=== PATIENT | female | born 1930 | race Caucasian/White ===

== ENCOUNTER 2017-03-17 12:05 | Emergency (ER) | payer MEDICARE, BC ==
[~2017-03-17] VITALS: Ht 160 cm; Wt 70.0 kg
[2017-03-17 12:14] VITALS: BP 143/67; PULSE 73; RESP 18; TEMP 98.4; O2SAT 100
--- NOTE | 2017-03-17 12:40 | PD ---
HPI Chief Complaint: Fall Time Seen by Provider: 12:12 Travel History International Travel<30 days: No Contact w/Intl Traveler<30days: No Traveled to known affect area: No History of Present Illness HPI Patient is an 86-year-old female presents to the emergency department for evaluation after a fall. Patient apparently walked into another resident and then fell forward, she has a history of fairly severe dementia and is oriented to self only at baseline, she does not interact very well with me, her eyes are open and she does tell us to "stop it" every now and then but she is unable to provide any of her history. According to EMS this appears to be her baseline mental status. [facility] Past Medical History Medical History: Unable to Obtain Past Surgical History Surgical History: Unable to Obtain Social History Alcohol Use: No Tobacco Use: No Substance Use: No Allergies-Medications Reported Meds & Prescriptions Reported Meds & Active Scripts Active Reported Risperidone 0.5 Mg Tab 0.5 Mg PO DAILY Hydroxyzine HCl 25 Mg Tab 25 Mg PO QID Mapap (Acetaminophen) 325 Mg Tab 325 Mg PO Q4-6H PRN Melatonin 3 Mg Tab 6 Ibuprofen 200 Mg Cap 400 Mg BID Docusate Sodium 100 Mg Cap 100 Mg PO BID PRN Amlodipine-Benazepril 5-10 Mg Cap 1 Cap PO DAILY Simvastatin 20 Mg Tab 20 Mg PO DAILY Aspirin 81 Mg Chew 81 Mg CHEW ONCE Trazodone (Trazodone HCl) 50 Mg Tab 50 Mg PO HS Alendronate (Alendronate Sodium) 70 Mg Tab 70 Mg PO Q7D Review of Systems Except as stated in HPI: all other systems reviewed are Neg Physical Exam Narrative GENERAL: Well-developed elderly female in no obvious distress SKIN: Focused skin assessment warm/dry. No skin breakdown posteriorly, there is a contusion over the right tib-fib. HEAD: No hoff signs no raccoons eyes, there is a frontal hematoma.. Normocephalic. EYES: Pupils equal and round. No scleral icterus. No injection or drainage. ENT: No nasal bleeding or discharge. Mucous membranes pink and moist. NECK: Trachea midline. No JVD. CARDIOVASCULAR: Regular rate and rhythm. No murmur appreciated. RESPIRATORY: No accessory muscle use. Clear to auscultation. Breath sounds equal bilaterally. GASTROINTESTINAL: Abdomen soft, non-tender, nondistended. Hepatic and splenic margins not palpable. MUSCULOSKELETAL: No obvious deformities. No clubbing. No cyanosis. No edema. No midline CT or L-spine tenderness that I appreciate, no gross deformity in any of the extremities, there is some tenderness over the anterior tibia on the right associated with a contusion, pulses motor are intact distally in all 4 extremities. NEUROLOGICAL: Awake and alert. No obvious cranial nerve deficits. Moves all 4 extrema. Normal speech. Uncooperative with a neurologic exam. Data Data Last Documented VS Vital Signs Date Time Temp Pulse Resp B/P (MAP) Pulse Ox O2 Delivery O2 Flow Rate FiO2 03/17/17 12:20 80 18 100 Room Air 03/17/17 12:14 98.4 143/67 (92) Orders Orders Tibia/Fibula (Ap/Lat) (03/17/17 ) Ct Brain W/O Iv Contrast(Rout) (03/17/17 ) Ct Cerv Spine W/O Contrast (03/17/17 ) Ed Discharge Order (03/17/17 13:42) Remove Cervical Collar (03/17/17 13:42) MDM Medical Decision Making Medical Screen Exam Complete: Yes Emergency Medical Condition: Yes Differential Diagnosis Fall head injury neck injury back injury. Narrative Course Concerns on her physical exam her for head injury neck injury and right tibial injury, x-rays as follows: Last 24 hours Impressions Tibia/Fibula X-Ray 03/17/17 0000 Signed Impressions: Service Date/Time: Friday, March 17, 2017 12:30 - CONCLUSION: Soft tissue swelling without acute fracture. Robles Hurley MD Head CT 03/17/17 0000 Signed Impressions: Service Date/Time: Friday, March 17, 2017 13:00 - CONCLUSION: 1. Cerebral atrophy and chronic ischemic small vessel vasculopathy. 2. Left frontal scalp contusion. Robles Hurley MD Cervical Spine CT 03/17/17 0000 Signed Impressions: Service Date/Time: Friday, March 17, 2017 13:00 - CONCLUSION: Negative trauma CT. Pavan Addison MD Unable to family service counselor patient secondary to dementia, she is stable for discharge, transported back to the detention Diagnosis Primary Impression: Fall Additional Impressions: Head contusion Contusion of leg Disposition: 03 DISCHARGE TO SNF Condition: Stable Karthikeyan Beltrán MD Mar 17, 2017 12:40
[2017-03-17] MEDS ORDERED: MELA3TAB (12:52)
[2017-03-17] MEDS ORDERED: ASPI-516 CHEW (12:52)
[2017-03-17] MEDS ORDERED: IBUP200C (12:52)
[2017-03-17] MEDS ORDERED: SIMV20TA PO (12:52)
[2017-03-17] MEDS ORDERED: AMLO5CAP PO (12:52)
[2017-03-17] MEDS ORDERED: ALEN1TAB48 PO (12:52)
[2017-03-17] MEDS ORDERED: DOCU100C15 PO (12:52)
[2017-03-17] MEDS ORDERED: TRAZ50TA12 PO (12:52)
[2017-03-17] MEDS ORDERED: MAPA325T PO (12:56)
[2017-03-17] MEDS ORDERED: HYDR-3133 PO (12:56)
[2017-03-17] MEDS ORDERED: RISP0.5T2 PO (12:56)
--- NOTE | 2017-03-17 13:10 | RADRPT ---
EXAM DATE/TIME: 03/17/2017 12:30 [facility] COMPARISON: No previous studies available for comparison. INDICATIONS : Fell today.. MEDICAL HISTORY : none known SURGICAL HISTORY : none known ENCOUNTER: Initial ACUITY: 1 day PAIN SCORE: Non-responsive. LOCATION: Right tib/fib FINDINGS: Two view examination of the right tibia demonstrates no evidence of fracture or dislocation. Bony mi neralization is normal. There is soft tissue swelling. CONCLUSION: Soft tissue swelling without acute fracture. Robles Hurley MD on March 17, 2017 at 13:06 Board Certified Radiologist. This report was verified electronically.
--- NOTE | 2017-03-17 13:12 | RADRPT ---
EXAM DATE/TIME: 03/17/2017 13:00 [facility] COMPARISON: No previous studies available for comparison. INDICATIONS : Fall, headache RADIATION DOSE: 33.42 CTDIvol (mGy) MEDICAL HISTORY : Dementia. SURGICAL HISTORY : None. ENCOUNTER: Initial ACUITY: 1 day PAIN SCALE: 5/10 LOCATION: cranial TECHNIQUE: Multiple contiguous axial images were obtained of the head. Using automated exposure control and adj ustment of the mA and/or kV according to patient size, radiation dose was kept as low as reasonably a chievable to obtain optimal diagnostic quality images. DICOM format image data is available electro nically for review and comparison. FINDINGS: CEREBRUM: The ventricles are dilated. Scattered areas of low attenuation throughout the white matter.. No evid ence of midline shift, mass lesion, hemorrhage or acute infarction. No extra-axial fluid collections are seen. POSTERIOR FOSSA: The cerebellum and brainstem are intact. The 4th ventricle is midline. The cerebellopontine angle i s unremarkable. EXTRACRANIAL: The visualized portion of the orbits is intact. Left frontal scalp contusion. SKULL: The calvaria is intact. No evidence of skull fracture. CONCLUSION: 1. Cerebral atrophy and chronic ischemic small vessel vasculopathy. 2. Left frontal scalp contusion. Robles Hurley MD on March 17, 2017 at 13:09 Board Certified Radiologist. This report was verified electronically.
--- NOTE | 2017-03-17 13:30 | RADRPT ---
EXAM DATE/TIME: 03/17/2017 13:00 [facility] COMPARISON: No previous studies available for comparison. INDICATIONS : Fall, headache RADIATION DOSE: 20.94 CTDIvol (mGy) MEDICAL HISTORY : Dementia. SURGICAL HISTORY : None. ENCOUNTER: Initial ACUITY: 1 day PAIN SCALE: 5/10 LOCATION: Bilateral neck TECHNIQUE: Volumetric scanning of the cervical spine was performed. Multiplanar reconstructions in the sagittal, coronal and oblique axial planes were performed. Using automated exposure control and adjustment o f the mA and/or kV according to patient size, radiation dose was kept as low as reasonably achievable to obtain optimal diagnostic quality images. DICOM format image data is available electronically f or review and comparison. FINDINGS: The sagittal reconstructions demonstrate normal vertebral body height and normal prevertebral soft ti ssues. The dens is intact and there is a normal atlantoaxial relationship. Degenerative changes prese nt at the C4-5, C5-6 and C6-7 levels with disc space narrowing and hypertrophic change. There is a mi ld grade 1 anterospondylolisthesis of C7 on T1 of several millimeters. Degenerative changes are prese nt atlantoaxial joint with joint space loss and sclerosis and subchondral cyst formation in the dens. The axial images demonstrate that the vertebral bodies and posterior elements are intact. The soft ti ssues are within normal limits. There is no evidence of acute fracture or malalignment. There are deg enerative changes involving the facet joints. CONCLUSION: Negative trauma CT. Pavan Addison MD on March 17, 2017 at 13:25 Board Certified Radiologist. This report was verified electronically.
== END 2017-03-17 15:20 ==
LOC: NEPD 12:05
DX: S00.93XA Contusion of unspecified part of head, initial encounter (principal); S80.11XA Contusion of right lower leg, initial encounter; F03.90 Unspecified dementia, unspecified severity, without behavioral disturbance, psychotic disturbance, mood disturbance, and anxiety; W03.XXXA Other fall on same level due to collision with another person, initial encounter; Y93.01 Activity, walking, marching and hiking; Y92.129 Unspecified place in nursing home as the place of occurrence of the external cause
CPT/HCPCS: 70450; 72125; 73590; 99285

== ENCOUNTER 2017-03-19 13:42 | Emergency (ER) | payer MEDICARE, BC ==
[~2017-03-19] VITALS: Ht 162.6 cm; Wt 60.0 kg
[~2017-03-19 13:42] MED LIST: ALEN1TAB48 PO; AMLO5CAP PO; ASPI-516 CHEW; DOCU100C15 PO; HYDR-3133 PO; IBUP200C; MAPA325T PO; MELA3TAB; RISP0.5T2 PO; SIMV20TA PO; TRAZ50TA12 PO
[2017-03-19 13:47] VITALS: BP 126/53; PULSE 66; RESP 18; TEMP 97.5
[2017-03-19 14:00] VITALS: BP 118/58; PULSE 66; RESP 18; O2SAT 98
[2017-03-19] MEDS ORDERED: SODIUM CHLOR 0.9% 1000 ML INJ 1,000 ML IV ONE (14:00)
--- NOTE | 2017-03-19 14:05 | RADRPT ---
EXAM DATE/TIME: 03/19/2017 13:54 [facility] COMPARISON: No previous studies available for comparison. INDICATIONS : Chest palpatations MEDICAL HISTORY : Hypertension. Dementia SURGICAL HISTORY : Pacemaker. ENCOUNTER: Initial ACUITY: 1 day PAIN SCORE: Non-responsive. LOCATION: Bilateral chest FINDINGS: A single view of the chest demonstrates the lungs to be symmetrically aerated without evidence of mas s, infiltrate or effusion. The cardiomediastinal contours are unremarkable. Cardiac pacemaker is in place. Advanced arthropathy is seen of the left shoulder joint. Osseous structures are otherwise int act. CONCLUSION: 1. No evidence of acute cardiopulmonary process. 2. Cardiac pacemaker 3. Advanced arthropathy of the left shoulder Odell Metcalf MD on March 19, 2017 at 14:01 Board Certified Radiologist. This report was verified electronically.
--- NOTE | 2017-03-19 14:35 | PD ---
HPI . Altered mental status Chief Complaint: Altered Mental Status Time Seen by Provider: 13:46 Travel History International Travel<30 days: No Contact w/Intl Traveler<30days: No Traveled to known affect area: No History of Present Illness HPI Patient is sent spine [facility] from a [facility] for the evaluation of altered mental status. This patient is demented. She is unable to provide any history. The patient had a fall yesterday. She was seen for that and had a CT of her head and neck which were negative for acute changes. She was discharged back to the [facility]. [facility] reports hypotension in route here. They started an IV and gave her approximately 100 cc of fluid prior to arrival here. Her last blood pressure on arrival was 100/60. Her first blood pressure done here was 126/53. [facility] Past Medical History Dementia: Yes Diminished Hearing: No Hypertension: Yes Influenza Vaccination: Yes ?: Not Past Surgical History Pacemaker: Yes Social History Alcohol Use: No Tobacco Use: No Substance Use: No Allergies-Medications (Allergen,Severity, Reaction): Coded Allergies: No Known Allergies (Unverified , 03/19/17) Reported Meds & Prescriptions Reported Meds & Active Scripts Active Reported Risperidone 0.5 Mg Tab 0.5 Mg PO DAILY Hydroxyzine HCl 25 Mg Tab 25 Mg PO QID Mapap (Acetaminophen) 325 Mg Tab 325 Mg PO Q4-6H PRN Melatonin 3 Mg Tab 6 Ibuprofen 200 Mg Cap 400 Mg BID Docusate Sodium 100 Mg Cap 100 Mg PO BID PRN Amlodipine-Benazepril 5-10 Mg Cap 1 Cap PO DAILY Simvastatin 20 Mg Tab 20 Mg PO DAILY Aspirin 81 Mg Chew 81 Mg CHEW ONCE Trazodone (Trazodone HCl) 50 Mg Tab 50 Mg PO HS Alendronate (Alendronate Sodium) 70 Mg Tab 70 Mg PO Q7D Review of Systems ROS Limitations: Poor Historian Physical Exam Narrative GENERAL: Patient is awake and occasionally yells out. SKIN: warm/dry. Bruising noted to the left side of the face. She also has a diffuse maculopapular rash. HEAD: Normocephalic. EYES: Pupils equal and round. No scleral icterus. No injection or drainage. ENT: No nasal bleeding or discharge. Mucous membranes pink and moist. NECK: Trachea midline. Full range of motion without pain.. CARDIOVASCULAR: Regular rate and rhythm. Heart sounds are normal. RESPIRATORY: No accessory muscle use. Clear to auscultation. Breath sounds equal bilaterally. GASTROINTESTINAL: Abdomen soft. Nontender. Bowel sounds present. Nondistended. Delayed MUSCULOSKELETAL: No obvious deformities. NEUROLOGICAL: Awake and alert. No obvious cranial nerve deficits. Moving all 4 extremities equally. PSYCHIATRIC: Unable to assess. Data Data Last Documented VS Vital Signs Date Time Temp Pulse Resp B/P (MAP) Pulse Ox O2 Delivery O2 Flow Rate FiO2 03/19/17 14:00 66 18 118/58 (78) 98 Room Air 03/19/17 13:47 97.5 Orders Orders Sepsis Workup Initiated (03/19/17 ) Complete Blood Count With Diff (03/19/17 13:46) Comprehensive Metabolic Panel (03/19/17 13:46) Lactic Acid Sepsis Protocol (03/19/17 13:46) Urinalysis - C+S If Indicated (03/19/17 13:46) Influenzae A/B Antigen (03/19/17 13:46) Blood Culture (03/19/17 13:46) Chest, Single Ap (03/19/17 13:46) Ecg Monitoring (03/19/17 13:46) Iv Access Insert/Monitor (03/19/17 13:46) Cath For Specimen (03/19/17 13:46) Oximetry (03/19/17 13:46) Oxygen Administration (03/19/17 13:46) Sodium Chlor 0.9% 1000 Ml Inj (Ns 1000 M (03/19/17 14:00) Ct Brain W/O Iv Contrast(Rout) (03/19/17 14:27) Labs Laboratory Tests Test 03/19/17 14:15 03/19/17 14:55 White Blood Count 11.4 TH/MM3 Red Blood Count 4.17 MIL/MM3 Hemoglobin 13.2 GM/DL Hematocrit 38.5 % Mean Corpuscular Volume 92.2 FL Mean Corpuscular Hemoglobin 31.7 PG Mean Corpuscular Hemoglobin Concent 34.3 % Red Cell Distribution Width 13.1 % Platelet Count 340 TH/MM3 Mean Platelet Volume 8.0 FL Neutrophils (%) (Auto) 72.1 % Lymphocytes (%) (Auto) 13.7 % Monocytes (%) (Auto) 5.4 % Eosinophils (%) (Auto) 8.3 % Basophils (%) (Auto) 0.5 % Neutrophils # (Auto) 8.2 TH/MM3 Lymphocytes # (Auto) 1.6 TH/MM3 Monocytes # (Auto) 0.6 TH/MM3 Eosinophils # (Auto) 0.9 TH/MM3 Basophils # (Auto) 0.1 TH/MM3 CBC Comment AUTO DIFF Differential Comment AUTO DIFF CONFIRMED Blood Urea Nitrogen 22 MG/DL Creatinine 0.96 MG/DL Random Glucose 137 MG/DL Total Protein 6.9 GM/DL Albumin 3.7 GM/DL Calcium Level 8.8 MG/DL Alkaline Phosphatase 93 U/L Aspartate Amino Transf (AST/SGOT) 22 U/L Alanine Aminotransferase (ALT/SGPT) 29 U/L Total Bilirubin 0.4 MG/DL Sodium Level 141 MEQ/L Potassium Level 3.9 MEQ/L Chloride Level 109 MEQ/L Carbon Dioxide Level 27.7 MEQ/L Anion Gap 4 MEQ/L Estimat Glomerular Filtration Rate 55 ML/MIN Lactic Acid Level 2.2 mmol/L Urine Collection Type CATH Urine Color YELLOW Urine Turbidity CLEAR Urine pH 6.0 Urine Specific [place] 1.023 Urine Protein TRACE mg/dL Urine Glucose (UA) NEG mg/dL Urine Ketones NEG mg/dL Urine Occult Blood NEG Urine Nitrite NEG Urine Bilirubin NEG Urine Leukocyte Esterase NEG Urine Squamous Epithelial Cells 0-5 /hpf Urine Amorphous Sediment FEW Urine Hyaline Casts 0-2 /lpf Microscopic Urinalysis Comment CATH-CULT NOT IND MDM Medical Decision Making Medical Screen Exam Complete: Yes Emergency Medical Condition: Yes Medical Record Reviewed: Yes (seen 03/17 for fall.) Differential Diagnosis Differential diagnosis of altered mental status includes but is not limited to infection, electrolyte abnormality, neurological event, intoxication Narrative Course Patient presents from the [facility] for altered mental status. She has dementia. [facility] reports hypotension to their exam. She is normotensive here. I have initiated a septic workup. I will also CT her head because of the trauma yesterday. She did have a negative CT of her head yesterday but could have developed an epidural hematoma since that time. CBC & BMP Diagram 03/19/17 14:15 Total Protein 6.9, Albumin 3.7, Calcium Level 8.8, Alkaline Phosphatase 93, Aspartate Amino Transf (AST/SGOT) 22, Alanine Aminotransferase (ALT/SGPT) 29, Total Bilirubin 0.4 UA is neg. LA 2.2 flu neg. Last Impressions Chest X-Ray 03/19/17 1346 Signed Impressions: Service Date/Time: Sunday, March 19, 2017 13:54 - CONCLUSION: 1. No evidence of acute cardiopulmonary process. 2. Cardiac pacemaker 3. Advanced arthropathy of the left shoulder Odell Metcalf MD CT>>Cerebral atrophy and chronic ischemic small vessel vasculopathy. No hemorrhage seen. Diagnosis Primary Impression: Altered mental state Qualified Codes: R40.4 - Transient alteration of awareness Patient Instructions: Altered Mental Status (ED), General Instructions Disposition: 03 DISCHARGE TO SNF Condition: Stable Kusum Lancaster MD Mar 19, 2017 14:35
[2017-03-19 14:38] LABS: AUTOMATED NEUTROPHIL # 8.2 TH/MM3 (1.8-7.7); BASOPHIL # 0.1 TH/MM3 (0-0.2); BASOPHIL % 0.5 % (0.0-2.0); EOSINOPHIL # 0.9 TH/MM3 (0-0.4); EOSINOPHIL % 8.3 % (0.0-4.0); HEMATOCRIT 38.5 % (35.0-46.0); HEMOGLOBIN 13.2 GM/DL (11.6-15.3); LYMPH % 13.7 % (9.0-44.0); LYMPHOCYTE # 1.6 TH/MM3 (1.0-4.8); MEAN CELL VOLUME 92.2 FL (80.0-100.0); MEAN CORPUSCULAR HEMOGLOBIN 31.7 PG (27.0-34.0); MEAN CORPUSCULAR HGB CONC 34.3 % (32.0-36.0); MONO % 5.4 % (0.0-8.0); MONOCYTE # 0.6 TH/MM3 (0-0.9); NEUT % 72.1 % (16.0-70.0); PLATELET COUNT 340 TH/MM3 (150-450); RED BLOOD COUNT 4.17 MIL/MM3 (4.00-5.30); RED CELL DISTRIBUTION WIDTH 13.1 % (11.6-17.2); WHITE BLOOD COUNT 11.4 TH/MM3 (4.0-11.0)
[2017-03-19 14:41] LABS: CHLORIDE 109 MEQ/L (98-107); SODIUM (NA) 141 MEQ/L (136-145)
[2017-03-19 14:44] LABS: ALBUMIN 3.7 GM/DL (3.4-5.0); BICARBONATE 27.7 MEQ/L (21.0-32.0); CALCIUM 8.8 MG/DL (8.5-10.1); GLUCOSE,RANDOM 137 MG/DL (74-106)
[2017-03-19 14:45] LABS: BLOOD UREA NITROGEN 22 MG/DL (7-18)
[2017-03-19 14:48] LABS: ALT (GPT) 29 U/L (10-53); AST (GOT) 22 U/L (15-37); CREATININE 0.96 MG/DL (0.50-1.00); GLOMERULAR FILTRATION RATE 55 ML/MIN (>89)
[2017-03-19 14:49] LABS: TOTAL BILIRUBIN ADULT 0.4 MG/DL (0.2-1.0); TOTAL PROTEIN 6.9 GM/DL (6.4-8.2)
[2017-03-19 14:50] LABS: ALKALINE PHOSPHATASE 93 U/L (45-117)
[2017-03-19 14:52] LABS: LACTIC ACID SEPSIS PROTOCOL 2.2 mmol/L (0.4-2.0)
[2017-03-19 15:23] LABS: BLOOD, URINE NEG (NEG); GLUCOSE,URINE NEG (NEG); KETONE, URINE NEG (NEG); NITRITE,URINE NEG (NEG); URINE LEUKOCYTE ESTERASE NEG (NEG)
[2017-03-19 15:27] LABS: BILIRUBIN, URINE NEG (NEG)
[2017-03-19 15:44] LABS: AMORPHOUS SEDIMENT, URINE FEW; HYALINE CAST, URINE 0-2 /lpf (RARE); SQUAMOUS EPITHELIAL CELL URINE 0-5 /hpf (0-5); URINE COLOR YELLOW (YELLW/STRAW)
--- NOTE | 2017-03-19 16:06 | RADRPT ---
EXAM DATE/TIME: 03/19/2017 15:44 [facility] COMPARISON: CT BRAIN W/O CONTRAST, March 17, 2017, 13:00. INDICATIONS : Altered mental status. Bruising around left eye. RADIATION DOSE: 61.31 CTDIvol (mGy) MEDICAL HISTORY : Dementia. Hypertension. SURGICAL HISTORY : Pacemaker. ENCOUNTER: Initial ACUITY: 1 day PAIN SCALE: Non-responsive LOCATION: cranial TECHNIQUE: Multiple contiguous axial images were obtained of the head. Using automated exposure control and adj ustment of the mA and/or kV according to patient size, radiation dose was kept as low as reasonably a chievable to obtain optimal diagnostic quality images. DICOM format image data is available electro nically for review and comparison. FINDINGS: CEREBRUM: The ventricles are prominent consistent with atrophy. There are areas of low attenuation throughout t he white matter. No evidence of midline shift, mass lesion, hemorrhage or acute infarction. No extra -axial fluid collections are seen. POSTERIOR FOSSA: The cerebellum and brainstem are intact. The 4th ventricle is midline. The cerebellopontine angle i s unremarkable. EXTRACRANIAL: The visualized portion of the orbits is intact. SKULL: The calvaria is intact. No evidence of skull fracture. CONCLUSION: Cerebral atrophy and chronic ischemic small vessel vasculopathy. No hemorrhage seen.. Robles Hurley MD on March 19, 2017 at 15:55 Board Certified Radiologist. This report was verified electronically.
[2017-03-19 17:27] VITALS: BP 152/75
== END 2017-03-19 17:44 ==
LOC: PHED 13:42
DX: R40.4 Transient alteration of awareness (principal); F03.90 Unspecified dementia, unspecified severity, without behavioral disturbance, psychotic disturbance, mood disturbance, and anxiety; I95.9 Hypotension, unspecified
CPT/HCPCS: 70450; 71045; 80053; 81001; 83605; 85025; 87040; 87804; 96360; 99285; J7030; P9612

== ENCOUNTER 2017-04-15 07:27 | Emergency (ER) | payer MEDICARE, BC ==
[~2017-04-15] VITALS: Ht 167.6 cm; Wt 68.0 kg
[2017-04-15 07:41] VITALS: BP 151/72; PULSE 65; RESP 18; TEMP 98; O2SAT 95
--- NOTE | 2017-04-15 08:11 | PD ---
HPI Chief Complaint: Medical Clearance Time Seen by Provider: 07:46 Travel History International Travel<30 days: No (unable to obtain) Contact w/Intl Traveler<30days: No (unable to obtain) Traveled to known affect area: No (unable to obtain) History of Present Illness HPI The patient was seen and examined in the presence of the nurse. This patient was sent from the assisted for evaluation after spell of decreased responsiveness. She ambulated to the dining room at the assisted for breakfast. Supposedly she fell asleep at the breakfast table. Had a difficult time arousing her. Staff there laid her on the ground and were going to do some CPR but she woke up. She has severe dementia. She has no idea where she is or why she is here. This is her baseline. She does not voice any complaint. She is unable to provide any history or review of systems. No injury today. No fevers PFSH Past Medical History Dementia: Yes Diminished Hearing: No Hypertension: Yes Past Surgical History Pacemaker: Yes Social History Alcohol Use: No Tobacco Use: No Substance Use: No Allergies-Medications (Allergen,Severity, Reaction): Coded Allergies: No Known Allergies (Unverified , 03/19/17) Reported Meds & Prescriptions Reported Meds & Active Scripts Active Reported Melatonin 10 Mg-1 Mg Tab 6 Mg PO HS Claritin (Loratadine) 10 Mg Cap 10 Mg PO HS Fluocinonide Topical (Fluocinonide) 0.05% Soln 1 Applic TOPICAL BID Risperidone Liq (Risperidone) 1 Mg/Ml Soln 0.5 Mg PO BID Mupirocin Topical (Mupirocin) 2 % Oint 1 Applic TOPICAL DAILY Amlodipine-Benazepril 2.5-10 Mg Cap 1 Cap PO DAILY Mapap (Acetaminophen) 325 Mg Tab 325 Mg PO Q4-6H PRN Docusate Sodium 100 Mg Cap 100 Mg PO BID PRN Aspirin 81 Mg Chew 81 Mg CHEW ONCE Trazodone (Trazodone HCl) 50 Mg Tab 50 Mg PO HS Review of Systems ROS Limitations: Clinical Condition, Uncooperative, Poor Historian Physical Exam Narrative GENERAL: Thin elderly demented patient in no apparent distress. SKIN: Focused skin assessment reveals no rash and nodules. Skin is Warm and dry. HEAD: Atraumatic. Normocephalic. EYES: Pupils equal and round. No scleral icterus. No injection or drainage. ENT: No nasal bleeding or discharge. Mucous membranes pink and moist. NECK: Trachea midline. No JVD. CARDIOVASCULAR: Regular rate and rhythm. No murmur appreciated. RESPIRATORY: No accessory muscle use. Clear to auscultation. Breath sounds equal bilaterally. GASTROINTESTINAL: Abdomen soft, non-tender, nondistended. Hepatic and splenic margins not palpable. MUSCULOSKELETAL: No obvious deformities. No clubbing. No cyanosis. No edema. NEUROLOGICAL: Awake and alert. No obvious cranial nerve deficits. Motor grossly within normal limits. Normal speech. PSYCHIATRIC: Intermittently agitated mood and affect; insight and judgment poor . Data Data Last Documented VS Vital Signs Date Time Temp Pulse Resp B/P (MAP) Pulse Ox O2 Delivery O2 Flow Rate FiO2 04/15/17 12:00 73 19 170/77 (108) 97 Room Air 04/15/17 07:41 98.0 Orders Orders Electrocardiogram (04/15/17 ) Iv Access Insert/Monitor (04/15/17 07:59) [employer] Mdm Developer / Telemetry CHEO.Q8H (04/15/17 07:59) Complete Blood Count With Diff (04/15/17 07:59) Basic Metabolic Panel (Bmp) (04/15/17 07:59) Labs Laboratory Tests Test 04/15/17 08:25 04/15/17 09:15 Blood Urea Nitrogen 11 MG/DL Creatinine 0.79 MG/DL Random Glucose 106 MG/DL Calcium Level 8.9 MG/DL Sodium Level 137 MEQ/L Potassium Level 4.3 MEQ/L Chloride Level 103 MEQ/L Carbon Dioxide Level 24.0 MEQ/L Anion Gap 10 MEQ/L Estimat Glomerular Filtration Rate 69 ML/MIN White Blood Count 11.1 TH/MM3 Red Blood Count 4.33 MIL/MM3 Hemoglobin 13.9 GM/DL Hematocrit 40.0 % Mean Corpuscular Volume 92.4 FL Mean Corpuscular Hemoglobin 32.2 PG Mean Corpuscular Hemoglobin Concent 34.9 % Red Cell Distribution Width 14.3 % Platelet Count 271 TH/MM3 Mean Platelet Volume 7.5 FL Neutrophils (%) (Auto) 81.6 % Lymphocytes (%) (Auto) 8.3 % Monocytes (%) (Auto) 6.8 % Eosinophils (%) (Auto) 2.7 % Basophils (%) (Auto) 0.6 % Neutrophils # (Auto) 9.0 TH/MM3 Lymphocytes # (Auto) 0.9 TH/MM3 Monocytes # (Auto) 0.8 TH/MM3 Eosinophils # (Auto) 0.3 TH/MM3 Basophils # (Auto) 0.1 TH/MM3 CBC Comment DIFF FINAL Differential Comment MDM Medical Decision Making Medical Screen Exam Complete: Yes Emergency Medical Condition: Yes Medical Record Reviewed: Yes Differential Diagnosis Exacerbation of dementia, hypoglycemia, cardiac arrhythmia Narrative Course I have reviewed the patient's electronic medical record. Patient was here 1 month ago and had extensive altered mental status workup. Etiology of her spell is unclear. There are no eyewitnesses to discuss with. Paramedics reported they found her with normal vital signs and no apparent problems Her vital signs and glucose are normal She is very demented but that is her baseline IV placed and labs sent Reviewed her EKG which shows sinus rhythm without ectopy or ST elevation Extended cardiac monitoring reveals sinus rhythm without ectopy CBC and metabolic profiles are normal We observe this patient for a while. She is now calm and relaxed. Family is at the bedside. Her daughter says that she was getting way too much medication at the assisted and they are weaning off everything except blood pressure pills now and trazodone and risperidone. She does get intermittently agitated. This is alternating with periods of listlessness. seems like her dementia is gradually worsening. She is stable for return to the assisted. I do not see an indication for hospitalization. Diagnosis Primary Impression: Decreased responsiveness Additional Impression: Dementia Qualified Codes: F03.90 - Unspecified dementia without behavioral disturbance Additional Instructions: Follow-up with assisted MD Med/Other Pt SpecificInfo: Other Disposition: 03 DISCHARGE TO SNF Condition: Stable Cory Robles MD Apr 15, 2017 08:11
[2017-04-15] MEDS ORDERED: RISP1SOL PO (08:18)
[2017-04-15] MEDS ORDERED: AMLO2.5C PO (08:18)
[2017-04-15] MEDS ORDERED: FLUO.05%ST TOPICAL (08:18)
[2017-04-15] MEDS ORDERED: MELA1TAB18 PO (08:18)
[2017-04-15] MEDS ORDERED: MUPI2OIN TOPICAL (08:18)
[2017-04-15] MEDS ORDERED: CLAR10CA3 PO (08:18)
[2017-04-15 09:03] LABS: CALCIUM 8.9 MG/DL (8.5-10.1); CREATININE 0.79 MG/DL (0.50-1.00)
[2017-04-15 09:34] VITALS: BP 167/78; PULSE 75; RESP 20; O2SAT 96
[2017-04-15 09:34] LABS: BASOPHIL # 0.1 TH/MM3 (0-0.2); BASOPHIL % 0.6 % (0.0-2.0); EOSINOPHIL # 0.3 TH/MM3 (0-0.4); EOSINOPHIL % 2.7 % (0.0-4.0); HEMOGLOBIN 13.9 GM/DL (11.6-15.3); LYMPH % 8.3 % (9.0-44.0); LYMPHOCYTE # 0.9 TH/MM3 (1.0-4.8); MEAN CELL VOLUME 92.4 FL (80.0-100.0); MEAN CORPUSCULAR HEMOGLOBIN 32.2 PG (27.0-34.0); MEAN CORPUSCULAR HGB CONC 34.9 % (32.0-36.0); MEAN PLATELET VOLUME 7.5 FL (7.0-11.0); MONO % 6.8 % (0.0-8.0); MONOCYTE # 0.8 TH/MM3 (0-0.9); NEUT % 81.6 % (16.0-70.0); PLATELET COUNT 271 TH/MM3 (150-450); RED BLOOD COUNT 4.33 MIL/MM3 (4.00-5.30); RED CELL DISTRIBUTION WIDTH 14.3 % (11.6-17.2); WHITE BLOOD COUNT 11.1 TH/MM3 (4.0-11.0)
[2017-04-15 12:00] VITALS: BP 170/77; PULSE 73; RESP 19; O2SAT 97
--- NOTE | 2017-04-16 11:35 | EKG ---
Date Performed: 04/15/2017 Time Performed: 07:51:56 PTAGE: 86 years EKG: Sinus rhythm LEFT ANTERIOR FASCICULAR BLOCK NONSPECIFIC T-WAVE ABNORMALITY ABNORMAL ECG NO PREVIOUS TRACING Baseline artifact. DOCTOR: Lisa Gonzales Interpretating Date/Time 04/16/2017 11:34:00
== END 2017-04-15 15:23 ==
LOC: NEPC 07:27 → NEDAMB 15:23
DX: F03.90 Unspecified dementia, unspecified severity, without behavioral disturbance, psychotic disturbance, mood disturbance, and anxiety (principal); I10 Essential (primary) hypertension
CPT/HCPCS: 80048; 85025; 93005; 99284

== ENCOUNTER 2017-07-13 12:26 | Emergency (ER) | payer MEDICARE, BC ==
[~2017-07-13] VITALS: Ht 170.2 cm; Wt 68.2 kg
[2017-07-13 12:26] VITALS: BP 196/87; PULSE 75; RESP 22; TEMP 97.7; O2SAT 100
[~2017-07-13 12:26] MED LIST changes: -ALEN1TAB48 PO; +AMLO2.5C PO; -AMLO5CAP PO; -ASPI-516 CHEW; +ASPI-516 PO; +CLAR10CA3 PO; +FLUO.05%ST TOPICAL; -HYDR-3133 PO; -IBUP200C; +MELA1TAB18 PO; -MELA3TAB; +MUPI2OIN TOPICAL; -RISP0.5T2 PO; +RISP1SOL PO; -SIMV20TA PO
[2017-07-13] MEDS ORDERED: LORazepam 2 MG/ML VIAL IV PUSH ONE (12:45)
[2017-07-13] MEDS ORDERED: SODIUM CHLORIDE 0.9% FLUSH 10 ML FLUSH IV FLUSH PRN (12:45)
[2017-07-13 13:00] VITALS: BP 117/61; PULSE 73; RESP 18; O2SAT 100
[2017-07-13 13:16] LABS: AUTOMATED NEUTROPHIL # 7.8 TH/MM3 (1.8-7.7); BASOPHIL # 0.1 TH/MM3 (0-0.2); BASOPHIL % 0.9 % (0.0-2.0); EOSINOPHIL # 0.5 TH/MM3 (0-0.4); EOSINOPHIL % 4.6 % (0.0-4.0); HEMATOCRIT 42.5 % (35.0-46.0); HEMOGLOBIN 14.3 GM/DL (11.6-15.3); LYMPH % 18.5 % (9.0-44.0); LYMPHOCYTE # 2.1 TH/MM3 (1.0-4.8); MEAN CELL VOLUME 92.2 FL (80.0-100.0); MEAN CORPUSCULAR HGB CONC 33.6 % (32.0-36.0); MEAN PLATELET VOLUME 8.8 FL (7.0-11.0); MONOCYTE # 0.8 TH/MM3 (0-0.9); PLATELET COUNT 302 TH/MM3 (150-450); RED BLOOD COUNT 4.61 MIL/MM3 (4.00-5.30); RED CELL DISTRIBUTION WIDTH 14.3 % (11.6-17.2); WHITE BLOOD COUNT 11.3 TH/MM3 (4.0-11.0)
--- NOTE | 2017-07-13 13:19 | PD ---
HPI Chief Complaint: Neuro Symptoms/ Deficits Time Seen by Provider: 12:29 Travel History International Travel<30 days: No Contact w/Intl Traveler<30days: No (UNABLE TO ASSESS) Traveled to known affect area: No (UNABLE TO ASSESS) History of Present Illness HPI Is an 87-year-old woman, resident of [facility], apparently threw up and passed out at lunch, which is done before, and on fire department assessment had a facial droop. They called a stroke alert in the field. I EVAC arrival patient did not have any stroke order other neurologic findings that were new. The report at baseline she is nonverbal and confused. Patient has no other complaints. Patient is unable to provide any additional medical history. History Past Medical History Narrative Medical Per medical records: Dementia Hypertension High cholesterol Osteoporosis Arthritis pacemaker Tetanus Vaccination: Unknown Influenza Vaccination: Yes Past Surgical History Surgical History: Unable to Obtain Social History Alcohol Use: No (UNABLE TO OBTAIN) Tobacco Use: No (UNABLE TO OBTAIN) Allergies-Medications (Allergen,Severity, Reaction): Coded Allergies: No Known Allergies (Unverified , 07/13/17) Reported Meds & Prescriptions Reported Meds & Active Scripts Active Reported Zyrtec (Cetirizine HCl) 10 Mg Tablet 10 Mg PO HS Ammonium Lactate (Lactic Acid (Ammonium Lactate)) 12% Lotn 1 Applic TOPICAL BID Apply from neck down Triamcinolone Topical (Triamcinolone Acetonide) 0.1% Cream 1 Applic TOPICAL BID Apply to torso, arms and legs as needed Diphenhydramine (Diphenhydramine HCl) 25 Mg Cap 25 Mg PO TID PRN Senna Lax (Sennosides) 8.6 Mg Tab 8.6 Mg PO BID Melatonin 3 Mg Tab 6 Mg PO HS Risperidone 0.5 Mg Tab 0.5 Mg PO HS Mupirocin Topical (Mupirocin) 2 % Oint 1 Applic TOPICAL DAILY Amlodipine-Benazepril 2.5-10 Mg Cap 1 Cap PO DAILY Mapap (Acetaminophen) 325 Mg Tab 650 Mg PO Q6HR PRN Aspirin 81 Mg Chew 81 Mg PO DAILY Review of Systems Except as stated in HPI: all other systems reviewed are Neg Physical Exam Narrative GENERAL: 87-year-old woman, overtly confused, nontoxic. SKIN: Focused skin assessment warm/dry. HEAD: Atraumatic. Normocephalic. EYES: Pupils equal and round. No scleral icterus. No injection or drainage. ENT: No nasal bleeding or discharge. Mucous membranes pink and moist. NECK: Trachea midline. No JVD. CARDIOVASCULAR: Regular rate and rhythm. No murmur appreciated. RESPIRATORY: No accessory muscle use. Clear to auscultation. Breath sounds equal bilaterally. GASTROINTESTINAL: Abdomen soft, non-tender, nondistended. Hepatic and splenic margins not palpable. MUSCULOSKELETAL: No obvious deformities. No clubbing. No cyanosis. No edema. NEUROLOGICAL: Awake and alert. Overt confusion. No obvious cranial nerve deficits. Moves all extremities. Just screams, no speech. Will not follow commands. Data Data Last Documented VS Vital Signs Date Time Temp Pulse Resp B/P (MAP) Pulse Ox O2 Delivery O2 Flow Rate FiO2 07/13/17 13:00 73 18 117/61 (79) 100 Room Air 07/13/17 12:26 97.7 Orders Orders Electrocardiogram (07/13/17 12:31) Complete Blood Count With Diff (07/13/17 12:31) Comprehensive Metabolic Panel (07/13/17 12:31) Prothrombin Time / Inr (Pt) (07/13/17 12:31) Act Partial Throm Time (Ptt) (07/13/17 12:31) Ct Brain W/O Iv Contrast(Rout) (07/13/17 12:31) Blood Glucose (07/13/17 12:31) Ecg Monitoring (07/13/17 12:31) Iv Access Insert/Monitor (07/13/17 12:31) Cath For Specimen (07/13/17 12:31) Oximetry (07/13/17 12:31) Sodium Chloride 0.9% Flush (Ns Flush) (07/13/17 12:45) Lorazepam Inj (Ativan Inj) (07/13/17 12:45) Urinalysis - C+S If Indicated (07/13/17 13:18) Ed Discharge Order (07/13/17 14:43) Labs Laboratory Tests Test 07/13/17 12:50 07/13/17 13:00 White Blood Count 11.3 TH/MM3 Red Blood Count 4.61 MIL/MM3 Hemoglobin 14.3 GM/DL Hematocrit 42.5 % Mean Corpuscular Volume 92.2 FL Mean Corpuscular Hemoglobin 31.0 PG Mean Corpuscular Hemoglobin Concent 33.6 % Red Cell Distribution Width 14.3 % Platelet Count 302 TH/MM3 Mean Platelet Volume 8.8 FL Neutrophils (%) (Auto) 69.0 % Lymphocytes (%) (Auto) 18.5 % Monocytes (%) (Auto) 7.0 % Eosinophils (%) (Auto) 4.6 % Basophils (%) (Auto) 0.9 % Neutrophils # (Auto) 7.8 TH/MM3 Lymphocytes # (Auto) 2.1 TH/MM3 Monocytes # (Auto) 0.8 TH/MM3 Eosinophils # (Auto) 0.5 TH/MM3 Basophils # (Auto) 0.1 TH/MM3 CBC Comment DIFF FINAL Differential Comment Prothrombin Time 10.1 SEC Prothromb Time International Ratio 1.0 RATIO Activated Partial Thromboplast Time 21.3 SEC Blood Urea Nitrogen 15 MG/DL Creatinine 0.89 MG/DL Random Glucose 114 MG/DL Total Protein 7.1 GM/DL Albumin 3.7 GM/DL Calcium Level 8.8 MG/DL Alkaline Phosphatase 83 U/L Aspartate Amino Transf (AST/SGOT) 29 U/L Alanine Aminotransferase (ALT/SGPT) 30 U/L Total Bilirubin 0.3 MG/DL Sodium Level 141 MEQ/L Potassium Level 4.5 MEQ/L Chloride Level 105 MEQ/L Carbon Dioxide Level 27.2 MEQ/L Anion Gap 9 MEQ/L Estimat Glomerular Filtration Rate 60 ML/MIN Urine Color LIGHT-YELLOW Urine Turbidity CLEAR Urine pH 7.0 Urine Specific Gray 1.010 Urine Protein NEG mg/dL Urine Glucose (UA) NEG mg/dL Urine Ketones NEG mg/dL Urine Occult Blood NEG Urine Nitrite NEG Urine Bilirubin NEG Urine Urobilinogen LESS THAN 2.0 MG/DL Urine Leukocyte Esterase NEG Urine RBC LESS THAN 1 /hpf Urine WBC 2 /hpf Urine Hyaline Casts 2 /lpf Microscopic Urinalysis Comment CATH-CULT NOT IND MDM Medical Decision Making Medical Screen Exam Complete: Yes Emergency Medical Condition: Yes Interpretation(s) My review of EKG: Normal sinus rhythm at a 75, significant left axis deviation, QRS appears a little bit wide at 119, no definite evidence of acute ischemia. Compared to EKG from April 15, 2017, no significant change. LABS: CBC is remarkable for mild leukocytosis CMP unremarkable Coags negative UA negative CT head: Cerebral atrophy, chronic ischemic small vessel vasculopathy. No acute intracranial abnormality and no change in the study. Differential Diagnosis Dementia, vomiting, syncopal episode, seizure, bleed, other Narrative Course Medical decision making 87-year-old woman with dementia, throughout but syncope, improved now, appears to be at baseline. Will check labs, CT, likely return to nursing facility. Diagnosis Primary Impression: Syncope Additional Impression: Vomiting Additional Instructions: Continue current medications. Med/Other Pt SpecificInfo: No Change to Meds Disposition: 03 DISCHARGE TO SNF Condition: Stable Charles Chavez MD July 13, 2017 13:19
[2017-07-13] MEDS ORDERED: RISP0.5T2 PO (13:22)
[2017-07-13] MEDS ORDERED: MELA3TAB52 PO (13:22)
[2017-07-13] MEDS ORDERED: AMMO12LO TOPICAL (13:22)
[2017-07-13] MEDS ORDERED: SENN1TAB27 PO (13:22)
[2017-07-13] MEDS ORDERED: DIPH25CA PO (13:22)
[2017-07-13] MEDS ORDERED: TRIA.1%T TOPICAL (13:22)
[2017-07-13] MEDS ORDERED: CETI-1 PO (13:24)
[2017-07-13 13:25] LABS: PROTHROMBIN TIME - PATIENT 10.1 SEC (9.8-11.6)
[2017-07-13 13:30] LABS: ALBUMIN 3.7 GM/DL (3.4-5.0); ALT (GPT) 30 U/L (10-53); AST (GOT) 29 U/L (15-37); BICARBONATE 27.2 MEQ/L (21.0-32.0); BLOOD UREA NITROGEN 15 MG/DL (7-18); CALCIUM 8.8 MG/DL (8.5-10.1); CHLORIDE 105 MEQ/L (98-107); CREATININE 0.89 MG/DL (0.50-1.00); GLOMERULAR FILTRATION RATE 60 ML/MIN (>89); GLUCOSE,RANDOM 114 MG/DL (74-106); SODIUM (NA) 141 MEQ/L (136-145)
[2017-07-13 13:32] LABS: ALKALINE PHOSPHATASE 83 U/L (45-117); TOTAL BILIRUBIN ADULT 0.3 MG/DL (0.2-1.0); TOTAL PROTEIN 7.1 GM/DL (6.4-8.2)
--- NOTE | 2017-07-13 13:40 | RADRPT ---
EXAM DATE: 07/13/2017 1:38 PM EDT AGE/SEX: 87 years / Female INDICATIONS: Altered mental status. CLINICAL DATA: This is the patient's initial encounter. Patient reports that signs and symptoms have been present for 1 day and indicates a pain score of Nonresponsive. MEDICAL/SURGICAL HISTORY: Cardiovascular disease. Hypertension. Dementia Pacemaker. RADIATION DOSE: 33.41 CTDI (mGy) COMPARISON: [facility], CT BRAIN W/O CONTRAST, 03/19/2017. . TECHNIQUE: CT of the head without contrast. Using automated exposure control and adjustment of the mA and/or kV according to patient size, radiation dose was kept as low as reasonably achievable to ob tain optimal diagnostic quality images. FINDINGS: Cerebrum: The ventricles are prominent consistent with atrophy. Areas of low attenuation throughout the white matter.. No evidence of midline shift, mass lesion, hemorrhage or acute infarction. No ex traaxial fluid collections are seen. Posterior Fossa: The cerebellum and brainstem are intact. The 4th ventricle is midline. The cerebe llopontine angle is unremarkable. Extracranial: The visualized portion of the orbits is intact. Skull: The calvaria is intact. No evidence of skull fracture. CONCLUSION: 1. Cerebral atrophy and chronic ischemic small vessel vasculopathy. 2. No acute intracranial abnormality and no change from previous study. Electronically signed by: Robles Hurley MD 07/13/2017 1:39 PM EDT
[2017-07-13 13:46] LABS: BILIRUBIN, URINE NEG (NEG); BLOOD, URINE NEG (NEG); GLUCOSE,URINE NEG (NEG); HYALINE CAST, URINE 2 /lpf (RARE); KETONE, URINE NEG (NEG); NITRITE,URINE NEG (NEG); URINE COLOR LIGHT-YELLOW (YELLW/STRAW); URINE LEUKOCYTE ESTERASE NEG (NEG)
--- NOTE | 2017-07-14 14:23 | EKG ---
Date Performed: 07/13/2017 Time Performed: 12:59:38 PTAGE: 87 years EKG: Sinus rhythm MARKED LEFT AXIS DEVIATION SEPTAL MYOCARDIAL INFARCTION ABNORMAL ECG PREVIOUS TRACING : 04/15/2017 07.51 DOCTOR: Charles Wheeler Interpretating Date/Time 07/16/2017 07:45:43
== END 2017-07-13 16:45 ==
LOC: NEPC 12:26
DX: R55 Syncope and collapse (principal); R11.10 Vomiting, unspecified; F03.90 Unspecified dementia, unspecified severity, without behavioral disturbance, psychotic disturbance, mood disturbance, and anxiety
CPT/HCPCS: 70450; 80053; 81001; 85025; 85610; 85730; 93005; 96374; 99285; J2060; P9612